=== PATIENT | male | born 1970 | race Caucasian/White ===

== ENCOUNTER 2024-10-14 10:53 | Emergency (ER) | payer OTHER, SELFPAY ==
[2024-10-14 11:02] VITALS: BP 154/89; PULSE 93; RESP 20; TEMP 36.5; O2SAT 100
[2024-10-14 11:19] LABS: EDSTREPNEGPOS1 Negative (Negative)
--- NOTE | 2024-10-14 11:40 | ED_ITS ---
HPI - URI/Sore Throat General Chief Complaint: Upper Respiratory Infection Stated Complaint: Sore Throat/Nasal Congestion Time Seen by Provider: 10/14/24 11:40 Source: patient Mode of arrival: ambulatory Limitations: no limitations History of Present Illness HPI Narrative: 54-year-old male presents with complaint of cough, nasal congestion, sore throat for the past 4-5 days. Patient reports throat hurts so bad . Reports chills and body aches yesterday. Laid around all day. No chest pain or shortness of breath. Taking ibuprofen and Tylenol to treat pain. All systems reviewed and negative except as noted above. Related Data Allergies Allergy/AdvReac Type Severity Reaction Status Date / Time No Known Allergies Allergy Verified 10/14/24 11:07 Review of Systems Review of Systems: CONSTITUTIONAL: Denies fever. Reports, chills, or sweats. EYES: Denies visual changes, redness, or discharge. ENT: Reports rhinorrhea, congestion, sore throat. Denies otalgia. CARDIOVASCULAR: Denies chest pain, palpitations, or edema. RESPIRATORY: Denies cough or dyspnea. GASTROINTESTINAL: Denies abdominal pain, nausea, vomiting, or diarrhea. GENITOURINARY: Denies dysuria or hematuria. SKIN: Denies rash or itching. MUSCULOSKELETAL: Denies back pain, joint pain. Reports myalgia. NEUROLOGIC: Denies headache, numbness, or weakness. PSYCHIATRIC: Denies anxiety or depression. All other systems reviewed are negative, except as documented in HPI. PMFSH Comments At time of signature, agree with nursing past medical, surgical, social and family history. There is no relevant family history pertinent to the presenting complaint. Exam Narrative: GENERAL: This is a well-nourished, well-developed patient, patient ill- appearing but in no acute distress HEAD: normocephalic, atraumatic. EYES: PERRL. Sclera clear/white. Vision is grossly intact. EARS: External ears normal, auditory canals clear and without drainage, TMs normal without perforation. Hearing grossly intact. NOSE: External nose normal with clear nasal drainage THROAT: Mucous membranes moist, erythematous, tonsils 1+ bilaterally without exudates NECK: Neck supple, non-tender without lymphadenopathy, masses or thyromegaly. CARDIOVASCULAR: Regular rate and rhythm without murmurs, gallops, or rubs. RESPIRATORY: Clear to auscultation. Breath sounds equal bilaterally. No wheezes, rales, or rhonchi. SKIN: warm, Dry, intact with no suspicious lesions or rash, good texture and turgor. NEURO: awake, alert, and oriented to person, place and time. There were no obvious focal neurologic abnormalities. EXTREMITIES: No joint tenderness, effusion, or edema noted. No calf tenderness. Negative Homans sign bilaterally. BACK: Nontender without deformity. No CVA tenderness. Course Course Level of Care: Express Care Visit Vital Signs Vital signs: Vital Signs Temperature 36.5 C 10/14/24 11:02 Pulse Rate 93 10/14/24 11:02 Respiratory Rate 20 10/14/24 11:02 Blood Pressure 154/89 H 10/14/24 11:02 Pulse Oximetry 100 10/14/24 11:02 Oxygen Delivery Room Air 10/14/24 11:02 Temperature 36.5 C 10/14/24 11:02 Pulse Rate 93 10/14/24 11:02 Respiratory Rate 20 10/14/24 11:02 Blood Pressure 154/89 H 10/14/24 11:02 Pulse Oximetry 100 10/14/24 11:02 Oxygen Delivery Room Air 10/14/24 11:02 reviewed MDM - URI/Sore Throat MDM Narrative Medical decision making narrative: negative COVID, influenza and strep test. Will treat patient with antibiotic due to exam findings. Patient alert, nontoxic. Please be advised this is a medical document. It is intended for fobu-bu-zxhm communication. It is written in medical language and may contain unfamiliar abbreviations or verbiage. Medical documents are intended to carry relevant information, facts as evident, and the clinical opinion of the practitioner at the time of the encounter. This report may have been done utilizing a voice recognition system. Attempts have been made to correct errors. However, there may be uncorrected grammatical, spelling, and recognition errors present. The file time of this note does not necessarily represent the time of service. Differential Diagnosis Differential diagnosis: Likely upper respiratory infection, sinusitis, viral infection, influenza and pharyngitis Lab Data Labs: Lab Results 10/14/24 10/14/24 Range/Units 11:06 12:00 POC Influenza A Ag Negative (Negative) POC Influenza B Ag Negative (Negative) POC SARS CoV-2 Ag Negative (Negative) POC Grp A Strep Screen Negative (Negative) Discharge Plan Discharge Clinical Impression: Acute pharyngitis Patient Disposition: Home Condition: Stable Instructions: Antibiotic Form, Pharyngitis (ED) Additional Instructions: your COVID, influenza and strep test was negative today. Due to your symptoms and exam findings I am prescribing an antibiotic today. Take antibiotic as prescribed until gone. Continue taking ibuprofen or Tylenol every 6-8 hours as needed for pain. Taking ldtb-fzd-nkffkof decongestant such as pseudoephedrine. Take as directed on packaging. This medication is found behind the pharmacy counter. Drink at least 64 oz of water a day. See your doctor if symptoms are not improving. Patient Language: Liberian Prescriptions: New amoxicillin 500 mg capsule 500 mg PO Q12H 10 Days Qty: 20 0RF Follow-up/Referrals: Mark,Pierre Hummel MD [Primary Care Provider] - Time of Disposition: 12:03
[2024-10-14 12:03] LABS: EDCOVIDSCREEN Negative (Negative); EDINFLUASCREEN Negative (Negative); EDINFLUBSCREEN Negative (Negative)
--- OUTSIDE RECORDS SUMMARY | 2024-10-14 12:26 | XMS_ITS | Clinical Summary ---
Author Organization [facility] Address [facility] [place] [address] Care Team Providers Care Service Manager Name Role Phone Unavailable Primary Care Provider Unavailabl e Social History Tobacco Use Types Packs/Day Years Used Date Smoking Tobacco: Never Assessed Sex and Gender Information Value Date Recorded Sex Assigned at Not on file Legal Sex Male 7:53 PM CDT Gender Identity Not on file Sexual Orientation Not on file Plan of Treatment Health Maintenance Due Date Last Done Comments Colorectal Cancer Screening Colonoscopy (10 Years) 1970 Annual Physical 1973 Hepatitis C 1988 DTaP, Tdap and Td Vaccines ( 1 - Tdap) 1989 Hepatitis B Vaccines (1 of 3 - 19+ 3-dose series) 1989 Zoster Vaccines (1 of 2) 2020 COVID-19 Vaccine ( - 2023-2 5 season) 2024 Meningococcal B Vaccine Aged Out No l onger eligible based on patient's age to complete this topic Meningococcal Vaccine Aged Out No khai juan eligible based on patient's age to complete this topic Pneumococcal Vaccine: Pediat rics (0 to 5 Years) and At-Risk Patients (6 to 49 Years) Aged Out No longer eligible b ased on patient's age to complete this topic RSV Immunizations Under 20 Months Aged Out No longer eligible based on patient's age to complete this topic
--- OUTSIDE RECORDS SUMMARY | 2024-10-14 12:26 | XMS_ITS ---
Author Organization [employer] Address [address] [place] [address] [facility] [address] [place] [address] Care Team Providers Care Long Chain Beamer Name Role Phone Pierre Flores MD Primary Care Provider Unavailab Alfredo Duran Unavailable [phone] REASON FOR VISIT Copy of Colon & Path Encounters Encounter Location Date Provider Diagnosis [facility], [address] [facility] [address] [place] [address] 04/16/2024 Alfredo Lira Plan Of Treatment No Information Progress Notes * Stanley COFFMAN ADOB:1970 (53 yo M)Acc No.[id number]:04/16/2024 Patient: Stanley Gama :1970 A ge:53 Y S ex:Male Address:[facility] [place] [address], [address] * true * Date: Generated for Printi ng/Faxing/eTransmitting on: 0 10/14/2024 12:26 PM CDT
--- OUTSIDE RECORDS SUMMARY | 2024-10-14 12:26 | XMS_ITS ---
Author Organization [employer] Address [address] [place] [address] [facility] [address] [place] [phone] Care Team Providers Care Director Of Event Sales Name Role Phone Pierre Flores MD Primary Care Provider Unavailab Alfredo Duran [facility] [phone] Encounters Encounter Location Date Provider Diagnosis [facility], [address] [facility] [address] [place] [phone] 03/18/2024 Alfredo Lira Plan Of Treatment No Information Progress Notes * Stanley COFFMAN ADOB:1970 (53 yo M)Acc No.[id number]:03/18/2024 Patient: Stanley GARRISON :1970 A ge:53 Y S ex:Male Address:[facility] [place], [address] Subjective: * Chief Complaints: * * Medical History: * Surgical History: * Hospitalization/Major Diagno stic Procedure: * Medications: Objective: * Vitals: * Physical Examination: Assessment: Plan: * Treatment: * Procedure Codes: * Preventive Medicine: Screenings: C olonoscopy Was last colonoscopy performed three or more years ago? Y es * true * Date: Generated for Sydnii tyler/Faumeshg/eTransmitting on: 0 10/14/2024 12:26 PM CDT
--- OUTSIDE RECORDS SUMMARY | 2024-10-14 12:26 | XMS_ITS ---
Author Organization [employer] Address [address] [facility] [address] [place] [address] Care Team Providers Care Gold Burnisher Name Role Phone Pierre Flores MD Primary Care Provider Unavailab Alfredo Duran Unavailable [phone] REASON FOR VISIT Screening hxcp 6ft3 245lbs Medications Medication SIG (Take, Route, Fr equency, Duration) Notes Start Date End Date Status Suflave 178.7 GM ML Orally twice a da y for 1 days 12/18/2023 03/14/2024 Not-Taking Problems Problem Type SNOMED Code ICD Code Onset Dates Problem Status W/U Status Risk Notes Problem [id number] Personal history of colonic polyps (Z86.010) Active confirmed Encounters Encounter Location Date Provider Diagnosis [facility] [address] [place] [address] 03/18/2024 Alfredo Lira Encounter for screening for malignant neoplasm of colon Z12.11 and Personal history of colonic polyps Z86.010 Assessments Encounter Date Diagnosis (ICD Code) Assessment Notes Treatment Notes Treatment Clinical Notes Section Notes 03/18/2024 Encounter for screening for malignant neoplasm of colon (ICD-10 - Z12.11) 03/18/2024 Personal history of colonic polyps (ICD-10 - Z86.010) Plan Of Treatment Next Appt Details Follow Up: * Colonoscopy 5 y ear, Reason: Progress Notes * Stanley COFFMAN ADOB:1970 (53 yo M)Acc No.[id number]:03/18/2024 Patient: Stanley Gama Provider: Jm Lira M.D. :1970 A ge:53 Y S ex:Male Date:03/18/2024 Address:[address] [place], [place] [address], [facility] Pcp:Pierre Flores MD Subjective: * Chief Complaints: * S creening hxcp 6ft3 245lbs * Medical History: * Surgical History: * Hospitalization/Major Diagno stic Procedure: * Medications: N ot-TakingSuflave 178.7 GM Solution Reconstituted ML Orally twice a day, stop date 03/14/2024Not-Taking Suflave 178.7 GM Solution Reconstituted ML Orally twice a day, stop date 03/14/2024 Objective: Assessment: * Assessment: 1. E ncounter for screening for malignant neoplasm of colon - Z12.11 (Primary) 2 . P ersonal history of colonic polyps - Z86.010 Plan: * Treatment: * Procedure Codes: G 0105 COLOREC CANCR SCR; COLNSCPY HI RISK * Follow Up: * Colonoscopy 5 year * Images: * Sign off status: Completed true * Provider: Jm Lira M.D. Date: 0 03/18/2024 Generated for Víctor scott/Becca/eTbettysmitting on: 0 10/14/2024 12:26 PM CDT
--- OUTSIDE RECORDS SUMMARY | 2024-10-14 12:26 | XMS_ITS | Patient Health Record ---
Author Organization [facility] [employer] Address [address] [facility] [place] [address] Care Team Providers Care Captain Room Service Name Role Phone Pierre Flores MD Primary Care Provider Unavailab Alfredo Duran Unavailable [phone] Reason For Referral No Information Problems Problem Type SNOMED Code ICD Code Onset Dates Problem Status W/U Status Risk Notes Problem [id number] Personal history of colonic polyps (Z86.010) Active confirmed Encounters Encounter Location Date Provider Diagnosis [facility] [address] [place] [address] 03/18/2024 Alfredo Lira Encounter for screening for malignant neoplasm of colon Z12.11 and Personal history of colonic polyps Z86.010 [facility], [address] [place] [address] 12/18/2023 Alfredo Lira [facility], [address] [place] [address] 12/18/2023 Alfredo Lira [facility], [address] [place] [address] 03/05/2024 Alfredo Lira [facility], [address] [place] [address] 03/18/2024 Alfredo Lira [facility], [address] [place] [address] 04/16/2024 Alfredo Lira Assessments Encounter Date Diagnosis (ICD Code) Assessment Notes Treatment Notes Treatment Clinical Notes Section Notes 03/18/2024 Encounter for screening for malignant neoplasm of colon (ICD-10 - Z12.11) 03/18/2024 Personal history of colonic polyps (ICD-10 - Z86.010) Plan Of Treatment No Information Insurance Providers Payer Name Payer Address Payer Phone Subscriber Number Group Number Insured Name Patient Relationship to Insured Coverage Start Date Coverage End Date [employer] E[employer] [address] [address] [place] [phone] [id number] Stanley Coffman Self - patient is the insured Medical (General) History Medical History History ICD Code Colon Polyps
== END 2024-10-14 12:07 | disposition home or self-care (01) ==
PROVIDERS: Emergency Provider Nurse Practitioner Family; PCP Family Medicine Sports Medicine
DX: J02.9 Acute pharyngitis, unspecified (principal); Z20.822 Contact with and (suspected) exposure to COVID-19
CPT/HCPCS: 87081; 87426; 87804; 87880; 99213; G0463